=== PATIENT | female | born 1960 | race Caucasian/White ===

== ENCOUNTER → 2021-01-17 | Day surgery (SDC) | payer BC ==
[~2021-01-17] MED LIST: ACCUPRIL10 MG PO; CLARITIN10 M2 PO; HYDROCODON-ACE1 EAC2 PO; NORFLEX 100 MG100 MG PO; OMEPRAZOLE20 MG PO; TENORMIN 25 MG25 MG PO; VITAMIN B12-FO1 EACH PO
== END | disposition home or self-care (01) ==
LOC: OR 06:24
DX: Z12.11 Encounter for screening for malignant neoplasm of colon (principal); K57.30 Diverticulosis of large intestine without perforation or abscess without bleeding; K22.2 Esophageal obstruction; K44.9 Diaphragmatic hernia without obstruction or gangrene; K64.0 First degree hemorrhoids; K66.0 Peritoneal adhesions (postprocedural) (postinfection); I25.10 Atherosclerotic heart disease of native coronary artery without angina pectoris; I10 Essential (primary) hypertension; K21.9 Gastro-esophageal reflux disease without esophagitis; F41.1 Generalized anxiety disorder; E78.5 Hyperlipidemia, unspecified; E66.9 Obesity, unspecified; Z68.31 Body mass index [BMI] 31.0-31.9, adult; Z79.899 Other long term (current) drug therapy; Z20.822 Contact with and (suspected) exposure to COVID-19
CPT/HCPCS: 43249; G0121; J2001; J2704; J7040